=== PATIENT | male | born 1960 | race African-American/Black ===

== ENCOUNTER 2017-05-18 19:49 | Emergency (ER) | payer MEDICARE, MEDICAID ==
[~2017-05-18] VITALS: Ht 175.3 cm; Wt 100.0 kg
[~2017-05-18 19:49] MED LIST: ASPIRIN PO; CLONIDINE PO; COZAAR PO; LOSARTAN PO; METOPROLOL PO; RENAGEL PO; SENSIPAR PO; SPIRONOLACTONE PO
[2017-05-19] MEDS ORDERED: HYDROCODONE/ACETAMINOPHEN 5/325MG TABLET PO ONE (00:45)
[2017-05-19] MEDS ORDERED: LIDOCAINE 5% PATCH TOP SCH (00:45)
[2017-05-19 03:02] VITALS: BP 154/91
== END 2017-05-19 03:05 | disposition home or self-care (01) ==
LOC: ER 20:21
DX: R04.0 Epistaxis (principal); G89.29 Other chronic pain; M54.9 Dorsalgia, unspecified; I12.0 Hypertensive chronic kidney disease with stage 5 chronic kidney disease or end stage renal disease; N18.6 End stage renal disease; Z99.2 Dependence on renal dialysis; Z79.82 Long term (current) use of aspirin
CPT/HCPCS: 99283; C1893